=== PATIENT | female | born 1965 | race Caucasian/White ===

== ENCOUNTER 2019-09-17 16:46 | Emergency (ER) | payer BC ==
[~2019-09-17] VITALS: Ht 180.3 cm; Wt 74.8 kg
--- NOTE | 2019-09-17 17:19 | PHYS DOC ---
Adult General Chief Complaint Chief Complaint: ANIMAL BITE HPI HPI Patient is a 54 year old female who presents with was at her family's house and was down on the floor and the dog was standing at face height wetting his tell and she looked up in the dog reacted in that her nose. This happened today right before arrival to the emergency room. Patient states her last tetanus shot was 2 weeks ago with her flu shot. Patient rating her pain a 5 out of 10. Review of Systems Review of Systems Integument: nose laceration. Denies rash or skin lesions [] All other systems were reviewed and found to be within normal limits, except as documented in this note. Current Medications Current Medications Current Medications Medications (Trade) Dose Ordered Sig/Lucero Start Time Stop Time Status Last Admin Dose Admin Neomycin/ Polymyxin/ Bacitracin (Triple Antibiotic Ointment) 2 pkt 1X ONCE 09/17/19 17:45 09/17/19 17:46 DC 09/17/19 18:07 2 PKT Piperacillin Sod/ Tazobactam Sod 3.375 gm/Sodium Chloride 50 ml @ 100 mls/hr 1X ONCE 09/17/19 17:45 09/17/19 18:14 DC 09/17/19 18:07 100 MLS/HR Allergies Allergies Allergies Coded Allergies Type Severity Reaction Last Updated Verified No Known Drug Allergies 09/17/19 No Physical Exam Physical Exam Constitutional: Well developed, well nourished, no acute distress, non-toxic appearance. [] HENT: Normocephalic, atraumatic, bilateral external ears normal, oropharynx moist, no oral exudates, laceration to nose. . [] Eyes: PERRLA, EOMI, conjunctiva normal, no discharge. [] Neck: Normal range of motion, no tenderness, supple, no stridor. [] Skin: Left lateral cecily and medial cecily laceration. Warm, dry, no erythema, no rash. [] Back: No tenderness, no CVA tenderness. [] Extremities: No tenderness, no cyanosis, no clubbing, ROM intact, no edema. [] Neurologic: Alert and oriented X 3, normal motor function, normal sensory function, no focal deficits noted. [] Psychologic: Affect normal, judgement normal, mood normal. [] Current Patient Data Vital Signs Vital Signs Date Time Temp Pulse Resp B/P (MAP) Pulse Ox O2 Delivery O2 Flow Rate FiO2 09/17/19 18:05 95 18 137/88 (104) 96 Room Air 09/17/19 17:00 98.2 98.2 EKG EKG [] Radiology/Procedures Radiology/Procedures [] Course & Med Decision Making Course & Med Decision Making Patient's medial Cecily is lacerated through cartilage. Patient also has a left lateral Cecily 1 cm laceration that is lacerated totally through the cartilage. Bleeding is controlled. Patient states the dog was up on all vaccinations. Alert and oriented. Denies LOC, dizziness, nausea, vomiting, abdominal pain, neck pain, head pain. Patient denies any other injuries. Speaks in full complete sentences. There is no deformity or swelling or bruising to the nasal bones or tenderness to the nasal bones. Ambulatory with a steady gait. PERRLA. Animal control called by Security. I have spoken to Dr Susan Jackson from [facility] . She has accepted the patient and states to give the patient Unasyn and put antibiotic ointment on the lacerations. Unasyn is on back order. Zosyn is given instead. Antibiotic ointment is placed on lacerations after they are cleaned with saline and chlorhexidine. Patient to by SHARAN Mathis Disclaimer Delfina Disclaimer This electronic medical record was generated, in whole or in part, using a voice recognition dictation system. Departure Departure Impression: Primary Impression: Nasal cartilage deformity Additional Impression: Dog bite Disposition: 05 TRANSFER OTHER () Condition: STABLE Referrals: UNKNOWN PCP NAME (PCP) Problem Qualifiers Additional Impression: Dog bite Encounter type: initial encounter Qualified Codes: W54.0XXA - Bitten by dog, initial encounter [facility] FELLOW Sep 17, 2019 17:19
[2019-09-17] MEDS ORDERED: NEOMY/BACITR/POLYMYXIN OINT PACKET. TP ONE (17:45)
[2019-09-17] MEDS ORDERED: PIPERACILLIN/TAZOBACTAM 3.375 GM in IV NORMAL SALINE 50ML 50 ML IV ONE (17:45)
[2019-09-17 18:05] VITALS: BP 137/88
== END 2019-09-17 18:42 | disposition short-term general hospital (02) ==
LOC: ER 16:46
DX: S01.21XA Laceration without foreign body of nose, initial encounter (principal); M95.0 Acquired deformity of nose; W54.0XXA Bitten by dog, initial encounter; Y93.89 Activity, other specified; Y92.099 Unspecified place in other non-institutional residence as the place of occurrence of the external cause; Y99.8 Other external cause status
CPT/HCPCS: 96365; 99285; J2543